=== PATIENT | male | born 1990 | race Caucasian/White ===

== ENCOUNTER 2019-03-29 10:18 | Emergency (ER) | payer OTHER ==
[~2019-03-29] VITALS: Ht 177.8 cm; Wt 65.9 kg
[2019-03-29 10:19] VITALS: BP 136/81
[2019-03-29] MEDS ORDERED: CYCL10TA PO (11:22)
== END 2019-03-29 11:30 | disposition home or self-care (01) ==
LOC: M ED 10:18
DX: S46.812A Strain of other muscles, fascia and tendons at shoulder and upper arm level, left arm, initial encounter (principal); X58.XXXA Exposure to other specified factors, initial encounter; Y92.84 Military training ground as the place of occurrence of the external cause; Y93.89 Activity, other specified; Y99.1 Military activity; F17.200 Nicotine dependence, unspecified, uncomplicated

== ENCOUNTER 2019-04-17 15:38 | Emergency (ER) | payer OTHER ==
[~2019-04-17] VITALS: Ht 180.3 cm; Wt 65.2 kg
[~2019-04-17 15:38] MED LIST: CYCL10TA PO
[2019-04-17] MEDS ORDERED: NORCO, ANEXSIA 5/325MG TABLET (HYDROcodone/ACETAMINOPHEN) PO ONE (16:15)
--- NOTE | 2019-04-17 17:17 | REP ---
LEFT SHOULDER, THREE VIEWS: Three views of the left shoulder are performed. There is no acute fracture, dislocation or intrinsic bone disease. The shoulder joints appear unremarkable. There is a small metallic structure seen on all three images, which appears to be external to the patient. Electronically Signed by Jefferson Carmen MD 04/17/2019 05:42 P
[2019-04-17 17:45] VITALS: BP 126/68
== END 2019-04-17 18:16 | disposition home or self-care (01) ==
LOC: M ED 15:38
DX: M25.512 Pain in left shoulder (principal); S46.812D Strain of other muscles, fascia and tendons at shoulder and upper arm level, left arm, subsequent encounter; X50.0XXA Overexertion from strenuous movement or load, initial encounter; Y92.9 Unspecified place or not applicable; Y93.89 Activity, other specified; Y99.1 Military activity; F17.200 Nicotine dependence, unspecified, uncomplicated

== ENCOUNTER 2019-12-02 21:35 | Emergency (ER) | payer OTHER ==
[~2019-12-02] VITALS: Ht 180.3 cm; Wt 63.6 kg
[~2019-12-02 21:35] MED LIST changes: +CYCL-707 PO; -CYCL10TA PO
[2019-12-02] MEDS ORDERED: METHOCARBAMOL 1,000 MG/10 ML VIAL (J2800) IV ONE (22:30)
[2019-12-02] MEDS ORDERED: KETOROLAC 30 MG/ML 1ML VIAL IV ONE (22:30)
[2019-12-03 00:43] VITALS: BP 129/71
[2019-12-03] MEDS ORDERED: ROBA750T4 PO (01:51)
[2019-12-03] MEDS ORDERED: NAPR-837 PO (01:51)
== END 2019-12-03 02:29 | disposition home or self-care (01) ==
LOC: M ED 21:35
DX: M54.5 Low back pain (principal); F17.200 Nicotine dependence, unspecified, uncomplicated
CPT/HCPCS: 96374; 96375; 99284; J1885; J2800

== ENCOUNTER 2020-03-04 10:39 | Emergency (ER) | payer OTHER ==
[~2020-03-04] VITALS: Ht 180.3 cm; Wt 65.9 kg
[~2020-03-04 10:39] MED LIST changes: +NAPR-837 PO; +ROBA750T4 PO
[2020-03-04 11:35] LABS: BASO % 0.7 % (0.0-1.0); EOS # 0.1 10^3/uL (0.0-0.5); HEMATOCRIT 43.5 % (42.0-52.0); HEMOGLOBIN 14.5 g/dl (13.5-17.5); LYMPH # 2.1 10^3/uL (1.5-5.0); LYMPH % 35.3 % (24.0-44.0); MEAN CORPUSCULAR HEMOGLOBIN 29.5 pg (27.0-33.0); MEAN CORPUSCULAR HGB CONC 33.3 g/dl (32.0-36.5); MEAN CORPUSCULAR VOLUME 88.4 fl (80.0-96.0); MONO # 0.7 10^3/uL (0.0-0.8); MONO % 11.1 % (0.0-5.0); NEUTROPHILS % 50.7 % (36.0-66.0); PLATELET COUNT, AUTOMATED 213 10^3/uL (150-450); RED BLOOD COUNT 4.92 10^6/uL (4.30-6.10)
[2020-03-04 12:44] LABS: ACETAMINOPHEN LEVEL < 2.0 UG/ML (10.0-30.0); ALBUMIN 4.6 GM/DL (3.2-5.2); ALT/SGPT 24 U/L (12-78); BILIRUBIN,DIRECT < 0.1 MG/DL (0.0-0.2); BILIRUBIN,TOTAL 0.3 MG/DL (0.2-1.0); BLOOD UREA NITROGEN 11 MG/DL (7-18); CALCIUM LEVEL 8.9 MG/DL (8.5-10.1); CARBON DIOXIDE LEVEL 26 MEQ/L (21-32); CHLORIDE LEVEL 107 MEQ/L (98-107); CPK CREATINE PHOSPHOKINASE 265 U/L (39-308); ETHYL ALCOHOL (ETHANOL) < 0.003 % (0.000-0.010); GLOMERULAR FILTRATION RATE > 60.0 (>60); GLUCOSE, FASTING 102 MG/DL (70-100); POTASSIUM SERUM 4.4 MEQ/L (3.5-5.1); SALICYLATE LEVEL 2.9 MG/DL (5.0-30.0); SODIUM LEVEL 140 MEQ/L (136-145); TOTAL PROTEIN 7.6 GM/DL (6.4-8.2)
[2020-03-04 12:48] LABS: AMPHETAMINES LEVEL URINE NEGATIVE (NEGATIVE); BARBITURATES URINE NEGATIVE (NEGATIVE); BENZODIAZEPINES URINE NEGATIVE (NEGATIVE); CANNABINOIDS URINE NEGATIVE (NEGATIVE); COCAINE METABOLITE URINE NEGATIVE (NEGATIVE); METHADONE URINE NEGATIVE (NEGATIVE); OPIATES URINE NEGATIVE (NEGATIVE); PHENCYCLIDINE URINE NEGATIVE (NEGATIVE)
[2020-03-04] MEDS ORDERED: KETOROLAC 30 MG/ML 1ML VIAL IV ONE (16:30)
--- NOTE | 2020-03-04 18:12 | ECGEPIP ---
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
[2020-03-04 21:21] VITALS: BP 103/56
[2020-03-04] MEDS ORDERED: HYDR-3363 PO (21:54)
== END 2020-03-04 22:01 | disposition home or self-care (01) ==
LOC: M ED 10:39
DX: F41.9 Anxiety disorder, unspecified (principal); T45.0X2A Poisoning by antiallergic and antiemetic drugs, intentional self-harm, initial encounter; F17.200 Nicotine dependence, unspecified, uncomplicated
CPT/HCPCS: 80048; 80076; 80307; 82550; 84443; 85025; 93005; 93041; 94760; 96374; 99285; G0480; J1885

== ENCOUNTER 2020-04-03 00:46 | Emergency (ER) | payer OTHER ==
[~2020-04-03] VITALS: Ht 182.9 cm; Wt 65.9 kg
[2020-04-03 00:46] VITALS: BP 136/96
[~2020-04-03 00:46] MED LIST changes: +HYDR-3363 PO
== END 2020-04-03 02:00 | disposition left against medical advice (07) ==
LOC: M ED 00:46
DX: Z53.9 Procedure and treatment not carried out, unspecified reason (principal)

== ENCOUNTER 2020-06-07 16:59 | Emergency (ER) | payer OTHER ==
[~2020-06-07] VITALS: Ht 180.3 cm; Wt 62.2 kg
[2020-06-07] MEDS ORDERED: GABA-1171 PO (17:06)
[2020-06-07 21:03] VITALS: BP 114/67
== END 2020-06-07 22:36 | disposition home or self-care (01) ==
LOC: M ED 16:59
DX: F43.0 Acute stress reaction (principal); F17.200 Nicotine dependence, unspecified, uncomplicated